=== PATIENT | male | born 1995 | race Caucasian/White ===

== ENCOUNTER 2025-04-12 12:17 | Emergency (ER) | payer OTHER ==
[~2025-04-12] VITALS: Ht 177.8 cm; Wt 96.0 kg
[2025-04-12 12:56] VITALS: O2SAT 99
[2025-04-12] MEDS: KETOROLAC 30MG/ML VIAL IM ONE (14:57)
[2025-04-12] MEDS ORDERED: IBUP-2030 MT (15:32)
[2025-04-12 15:58] VITALS: BP 128/66; PULSE 90; RESP 15; TEMP 36.9; O2SAT 99
== END 2025-04-12 15:58 | disposition home or self-care (01) ==
LOC: ER 12:17
DX: M25.561 Pain in right knee (principal); M25.571 Pain in right ankle and joints of right foot; M79.661 Pain in right lower leg; V89.2XXA Person injured in unspecified motor-vehicle accident, traffic, initial encounter; Y92.410 Unspecified street and highway as the place of occurrence of the external cause; Y93.02 Activity, running; Y99.8 Other external cause status
CPT/HCPCS: 73562; 73590; 73610; 73630; 29505; 96372; 99284; J1885; Z7610 ×3